=== PATIENT | male | born 1980 | race African-American/Black ===

== ENCOUNTER 2019-02-05 09:14 | Emergency (ER) | payer MEDICAID ==
[~2019-02-05] VITALS: Ht 162.6 cm; Wt 72.0 kg
[2019-02-05 09:24] VITALS: BP 165/76
== END 2019-02-05 11:38 | disposition home or self-care (01) ==
LOC: ER 09:21
DX: T14.8XXD Other injury of unspecified body region, subsequent encounter (principal); F12.10 Cannabis abuse, uncomplicated; Z93.3 Colostomy status; Z88.2 Allergy status to sulfonamides; Z99.3 Dependence on wheelchair; W33.01XD Accidental discharge of shotgun, subsequent encounter
CPT/HCPCS: 99282